=== PATIENT | female | born 1960 | race African-American/Black ===

== ENCOUNTER 2016-10-05 08:56 | Day surgery (SDC) | payer OTHER, MEDICARE ==
[2016-10-01 15:39] LABS: HEMATOCRIT 41.6 % (36.0-48.0); HEMOGLOBIN 13.4 g/dL (12.0-16.0)
[2016-10-01 15:53] LABS: BUN (BLOOD UREA NITROGEN) 7 MG/DL (6-23); CHLORIDE, SERUM 100 MMOL/L (96-112); CREATININE 0.77 MG/DL (0.55-1.02); GFR AFRICAN AMERICAN 100 ML/MIN (>=60); GFR NON AFRICAN AMERICAN 86 ML/MIN (>=60); POTASSIUM, SERUM 4.6 MMOL/L (3.5-5.3); SODIUM, SERUM 139 MMOL/L (135-148)
[2016-10-01 15:55] LABS: CALCIUM, SERUM 9.6 MG/DL (8.5-10.4); CO2 (CARBON DIOXIDE) 32 MMOL/L (24-34); GLUCOSE, SERUM 289 MG/DL (60-99)
--- NOTE | ~2016-10-05 | OP ---
Record Of Operation [facility] [address] [place]. [address] NAME: ANGELIQUE TRUJILLO : 60 STATUS : [facility]#: [id number] AGE: 56 ADM/REG DATE : 10/05/16 MR#: [id number] REPORT SERV DATE: 10/08/16 DICTATED BY: AMISH HERZOG DATE: 10/08/16 REPORT STATUS : Draft TRANSCRIBED BY: MODL DATE: 10/08/16 DATE OF PROCEDURE: 10/05/2016 PREOPERATIVE DIAGNOSIS: Left flank mass. POSTOPERATIVE DIAGNOSIS: Left flank mass. PROCEDURES: 1. Excision of left flank mass, 9 cm x 5 cm x 8 cm. 2. Intermediate wound closure, totaling 9 cm. ATTENDING SURGEON: Amish Herzog M.D. RESIDENT: Robert Meyer M.D. ANESTHESIA: Local and General. COMPLICATIONS: None. COUNTS: Correct. SPECIMEN: Left flank mass. ESTIMATED BLOOD LOSS: 5 mL. BRIEF HISTORY: Ms Trujillo is a 56-year-old female, who has had a slowly growing left flank mass over approximately 20 year period. She states that it has grown very slowly over the years and it is uncomfortable and it has become more pedunculated overtime. On exam, she was found to have a soft, mobile, lipomatous feeling pedunculated mass on her left flank. The patient agreed with the plan for excision. Risks, benefits, and alternatives were all explained in detail to the patient. She agreed to proceed. DESCRIPTION OF PROCEDURE: Following the correct identification of the patient, procedure, and the correct operative site in the preoperative holding area, the patient was transferred to operating room. Once there, she was placed on the operating table the Anesthesia team began induction of general endotracheal anesthesia. A time-out was performed. The patient had received appropriate preoperative antibiotics. Once the patient was intubated successfully and safely, she was then put into lateral decubitus position with her left side up. The patient was appropriately padded and secured to the operating room table. Next, the patient's left flank was prepped and draped in usual sterile fashion. To begin, we made an elliptical skin incision. Around this mass, there were no worrisome features on exam. The mass was soft and felt to be lipomatous in origin. After skin incision, we used Bovie electrocautery to dissect through the subcutaneous tissues. We examined carefully and did not find any sort of capsule. There were no acute abnormalities within the subcutaneous fat. We excised a column of tissue surrounding this lesion using Bovie electrocautery. Once it was completely excised, it was passed off as specimen. We then obtained hemostasis Record Of Operation [facility] [id number] [place]. [address] NAME: ANGELIQUE TRUJILLO : 60 STATUS : [facility]#: [id number] AGE: 56 ADM/REG DATE : 10/05/16 MR#: [id number] REPORT SERV DATE: 10/08/16 DICTATED BY: AMISH HERZOG RENEE DATE: 10/08/16 REPORT STATUS : Draft TRANSCRIBED BY: DEVON DATE: 10/08/16 and irrigated out our space. After this was completely draped the space, it was felt that there was good hemostasis. We then performed a layered closure. The first layer was closure of Kash fascia deep using 3-0 Vicryl sutures in an interrupted fashion. Once this was reapproximated, again closed the subcutaneous layer with deep dermal sutures using 3-0 Vicryl again in an interrupted fashion. Once all the sutures were placed and brought together and approximated, tissue reapproximated nicely, closing down the space. We then closed the skin with a 4-0 Monocryl suture in running subcuticular fashion. After the skin was closed, we cleaned and dried the incision. Local anesthetic was infiltrated into the surrounding tissue. We then applied Dermabond as a final dressing. The patient tolerated the procedure well. There were no apparent complications. She was able to be repositioned and extubated in the operating room without event. She did well and again there were no complications. DICTATED BY: MD PARK Ruff/DEVON ish Herzog MD / [id number] CC: MD Kassandra Blair M.D.
[~2016-10-05 08:56] MED LIST: AMBIEN CR12.5 MG PO; APRES25 PO; BUTRANS1 EAC2 TOP; CORTEF20 MG PO; CORTEF5 PO; CYMBALTA60 PO; DEXAMETHASON1 MG PO; DIL4TAB PO; DITRO5 PO; DURA50 TOP; FML OPH SUSP5 ML OPH; FORTAMET500 MG PO; GABARONE300 MG PO; GLUCOTROL5 PO; GLUCPH PO; GLUCXL2.5 PO; GLUCXL5 PO; HYDROCORTISONE PO; L20 PO; L40 PO; LAM250 PO; LANTUS SC; LANTUSCART SC; LEVEMIR SC; LISINOPRIL40 MG PO; MARI5 PO; METHOC750B PO; MICROZIDE PO; MSCONT15 PO; MSCONT60 PO; NEUR600 PO; NEUR800 PO; NORV10 PO; NOVOLOG; NOVOLOG SC; NOVOPENMIX SC; PR25 PO; PRAVAC PO; PRIN10 PO; PROTONIX PO; PROTONIXIV IV; REG PO; STOOL SOFTNER OTC PO; TIMOLOL MAL0.5 % OPH; TRAZ50 PO; TYLENOL ARTH650 MG PO; ULTRAM50 PO; VESICARE5 PO; VOLT50 PO; VOLTAREN1 % TOP; XALAT OPH; ZANAFLEX 4 MG TA4 MG PO
== END 2016-10-05 20:06 | disposition home or self-care (01) ==
LOC: SDC 08:56
PROVIDERS: Surgery
PROC: 0WBF0ZZ Excision of Abdominal Wall, Open Approach (ICD-10-PCS; 2016-10-05)
PROC: 0JQ80ZZ Repair Abdomen Subcutaneous Tissue and Fascia, Open Approach (ICD-10-PCS; principal; 2016-10-05 10:15)
DX: R19.09 Other intra-abdominal and pelvic swelling, mass and lump (principal); I10 Essential (primary) hypertension; E11.9 Type 2 diabetes mellitus without complications; E66.01 Morbid (severe) obesity due to excess calories; K31.84 Gastroparesis; K21.9 Gastro-esophageal reflux disease without esophagitis
CPT/HCPCS: 80048; 82962; 85014; 85018; 88304; 93005; A9270-GY; J0330; J0690; J2250; J2370; J2405; J3010